=== PATIENT | male | born 1965 | race Caucasian/White ===

== ENCOUNTER 2022-02-23 12:26 | Inpatient (IN) | payer OTHER ==
[2022-02-23 13:04] LABS: #Basophils 0.1 10x3/uL (0.0-0.2); #Eosinphils 0.5 10x3/uL (0.0-0.5); #Monocytes 0.7 10x3/uL (0.0-1.1); #Neutrophils 6.6 10x3/uL (1.5-8.4); %Basophils 0.7 % (0.0-2.0); %Eosinophils 5.3 % (0.0-6.0); %Lymphocytes 10.4 % (18.0-47.0); %Monocytes 8.2 % (0.0-10.0); %Neutrophils 74.8 % (40.0-75.0); Hemoglobin 8.6 g/dL (13.5-17.5); Mean Corpuscular HGB CONC 31.5 g/dL (32.0-36.0); Mean Corpuscular Hemoglobin 30.2 pg (27.0-33.0); Mean Corpuscular Volume 95.8 fl (81.2-95.1); Mean Platelet Volume 10.7 fl (7.4-10.4); Platelet Count 218 10x3/uL (150-450); RBC Distribution Width 13.4 % (11.5-14.5); Red Blood Cell (RBC) Count 2.85 10x6/uL (4.32-5.72); White Blood Cell (WBC) Count 8.8 10x3/uL (3.5-10.5)
[2022-02-23] MEDS ORDERED: Albuterol Sulfate 2.5 mg/3 ml Neb ONE ×2 (13:22→14:14)
[2022-02-23 13:25] LABS: ALT (SGPT) 15 U/L (8-55); AST (SGOT) 16 U/L (5-34); Albumin 3.3 g/dL (3.5-5.0); Alkaline Phosphatase 83 U/L (40-110); Anion Gap 14 mmol/L (10-20); BUN (Urea Nitrogen) 37 mg/dL (8.4-25.7); Bilirubin, Total 0.3 mg/dL (0.2-1.2); Calc. Creatinine Clearance 0 mL/min (70-130); Calcium 7.9 mg/dL (7.8-10.44); Carbon Dioxide 17 mmol/L (22-29); Chloride 118 mmol/L (98-107); Estimated GFR 22; Globulin 2.3 g/dL (2.4-3.5); Glucose 78 mg/dL (70-105); Protein, Total 5.6 g/dL (6.0-8.3); Sodium 142 mmol/L (136-145)
[2022-02-23 13:27] LABS: Potassium 7.2 mmol/L (3.5-5.1)
[2022-02-23] MEDS ORDERED: Furosemide 40 MG/4 ML VIAL ONE (13:59)
[2022-02-23 14:03] LABS: SARS-CoV-2 NAA Rapid Test Not Detected (NotDetected)
[2022-02-23] MEDS ORDERED: Calcium Chloride 1 GM/10 ML Abboject SYRINGE ONE (14:15)
[2022-02-23] MEDS ORDERED: Dextrose 50% Abboject 50 ML SYRINGE ONE ×2 (14:15→14:43)
[2022-02-23] MEDS ORDERED: Sodium Bicarb 50 MEQ/50 ML VIAL ONE ×2 (14:15)
[2022-02-23] MEDS ORDERED: Insulin Regular 300 UNITS/3 ML VIAL ONE (14:16)
[2022-02-23] MEDS ORDERED: Calcium Gluc 4.6 MEQ/10 ML (100 MG/ML) ONE (14:19)
[2022-02-23 15:01] LABS: Actual Bicarbonate (HCO3a) 15.7 mEq/L (22-28); Base Excess (BEa) -10.1 mEq/L (-2.0 to +3.0); CO2 Tension 34.3 mmHg (35.0-45.0); Calcium, Ionized (arterial) 1.19 mmol/L (1.12-1.30); Carboxyhemoglobin (COHb) 0.3 gm% (0.0-3.0); Hemoglobin (Hb) 10.1 g/dL (14.0-18.0); O2 Tension (PaO2), arterial 82.7 mmHg (80.0-100.0); Potassium - ABG Lab 6.4 mmol/L (3.70-5.30); Puncture Site RRA; pH, Arterial 7.28 (7.35-7.45)
[2022-02-23 15:04] LABS: ALV-art Gradient 159.625 mmHg (0-20)
[2022-02-23 17:02] LABS: Anion Gap 13 mmol/L (10-20); BUN (Urea Nitrogen) 37 mg/dL (8.4-25.7); Calc. Creatinine Clearance 0 mL/min (70-130); Calcium 8.9 mg/dL (7.8-10.44); Carbon Dioxide 18 mmol/L (22-29); Chloride 115 mmol/L (98-107); Estimated GFR 21; Glucose 106 mg/dL (70-105); Sodium 140 mmol/L (136-145)
[2022-02-23] MEDS ORDERED: Dextrose 50% Abboject 50 ML SYRINGE SLOW IVP PRN (17:11)
[2022-02-23] MEDS ORDERED: HumaLOG 300 UNITS/3 ML VIAL SC PRN (17:11)
[2022-02-23] MEDS ORDERED: Dextrose 5% in Water 1,000 ML IV PRN (17:11)
[2022-02-23] MEDS ORDERED: Ondansetron PF 4 MG/2 ML Vial IVP PRN (17:11)
[2022-02-23 17:17] VITALS: BMI 39.8
[2022-02-23] MEDS ORDERED: Sodium Chloride 0.9% 1,000 ML IV SCH (17:30)
[2022-02-23] MEDS ORDERED: LOKELMA 10 GM PACKET PO SCH (18:00)
[2022-02-23] MEDS ORDERED: Sodium Bicarb 50 MEQ/50 ML VIAL IVP SCH (18:00)
[2022-02-23] MEDS ORDERED: Calcium Gluc 4.6 MEQ/10 ML (100 MG/ML) SLOW IVP SCH (18:00)
[2022-02-23] MEDS: Sodium Bicarbonate 75 MEQ, Admixture Fee 1 EACH in Dextrose 5% in Water 500 ML IV SCH (18:15)
[2022-02-23 20:29] LABS: Troponin I 0.013 ng/mL (< 0.028)
[2022-02-23 20:36] LABS: Chloride 115 mmol/L (98-107); Potassium 5.9 mmol/L (3.5-5.1); Sodium 144 mmol/L (136-145)
[2022-02-23 20:49] LABS: Anion Gap 18 mmol/L (10-20); BUN (Urea Nitrogen) 37 mg/dL (8.4-25.7); Calc. Creatinine Clearance 43 mL/min (70-130); Calcium 8.7 mg/dL (7.8-10.44); Carbon Dioxide 17 mmol/L (22-29); Estimated GFR 22; Glucose 119 mg/dL (70-105)
[2022-02-23] MEDS: hydrALAZINE 25 MG TAB PO SCH (22:43)
[2022-02-23 22:44] LABS: Troponin I 0.011 ng/mL (< 0.028)
[2022-02-23] MEDS: Atorvastatin Calcium 40 MG TAB PO SCH (22:44)
[2022-02-23] MEDS: Famotidine 20 MG TAB PO SCH (22:44)
[2022-02-23] MEDS: Acetaminophen 325 MG TAB PO PRN (22:46)
[2022-02-23] MEDS: Heparin 5,000 UNITS/ML VIAL SC SCH (22:47)
[2022-02-24] MEDS: Sodium Bicarbonate 75 MEQ, Admixture Fee 1 EACH in Dextrose 5% in Water 500 ML IV SCH ×2 (00:10→06:32)
[2022-02-24 04:20] LABS: Anion Gap 16 mmol/L (10-20); BUN (Urea Nitrogen) 39 mg/dL (8.4-25.7); Calc. Creatinine Clearance 43 mL/min (70-130); Calcium 8.2 mg/dL (7.8-10.44); Carbon Dioxide 17 mmol/L (22-29); Chloride 113 mmol/L (98-107); Estimated GFR 22; Glucose 232 mg/dL (70-105); Potassium 5.7 mmol/L (3.5-5.1); Sodium 140 mmol/L (136-145)
[2022-02-24] MEDS ORDERED: Dextrose 50% Abboject 50 ML SYRINGE SLOW IVP SCH (08:30)
[2022-02-24] MEDS ORDERED: Furosemide 20 MG/2 ML VIAL SLOW IVP SCH (08:30)
[2022-02-24] MEDS ORDERED: Insulin Regular 300 UNITS/3 ML VIAL IVP SCH (08:30)
[2022-02-24] MEDS: Amlodipine 10 MG TAB PO SCH (09:11)
[2022-02-24] MEDS: Aspirin 81 mg Enteric Coated Tablet PO SCH (09:12)
[2022-02-24] MEDS: Clopidogrel Bisulfate 75 MG TAB PO SCH (09:12)
[2022-02-24] MEDS: hydrALAZINE 25 MG TAB PO SCH ×3 (09:12→21:12)
[2022-02-24] MEDS: Carvedilol 25 MG TAB PO SCH ×2 (09:12→17:49)
[2022-02-24] MEDS: Ferrous Sulfate 325 MG TAB PO SCH (09:19)
[2022-02-24] MEDS: Docusate 100 MG CAP PO SCH (09:21)
[2022-02-24] MEDS: Heparin 5,000 UNITS/ML VIAL SC SCH ×3 (11:25→21:11)
[2022-02-24] MEDS: Acetaminophen 325 MG TAB PO PRN ×2 (16:13→21:12)
[2022-02-24] MEDS: Sodium Bicarbonate 75 MEQ in Dextrose 5% in Water 500 ML IV SCH (16:26)
[2022-02-24 17:29] LABS: Anion Gap 13 mmol/L (10-20); BUN (Urea Nitrogen) 41 mg/dL (8.4-25.7); Calc. Creatinine Clearance 44 mL/min (70-130); Calcium 8.1 mg/dL (7.8-10.44); Carbon Dioxide 23 mmol/L (22-29); Chloride 110 mmol/L (98-107); Estimated GFR 22; Glucose 147 mg/dL (70-105); Sodium 141 mmol/L (136-145)
[2022-02-24] MEDS: Famotidine 20 MG TAB PO SCH (21:11)
[2022-02-24] MEDS: Atorvastatin Calcium 40 MG TAB PO SCH (21:11)
[2022-02-25 04:26] LABS: Anion Gap 14 mmol/L (10-20); BUN (Urea Nitrogen) 44 mg/dL (8.4-25.7); Calc. Creatinine Clearance 43 mL/min (70-130); Calcium 7.7 mg/dL (7.8-10.44); Carbon Dioxide 22 mmol/L (22-29); Chloride 113 mmol/L (98-107); Estimated GFR 22; Glucose 124 mg/dL (70-105); Potassium 4.8 mmol/L (3.5-5.1); Sodium 144 mmol/L (136-145)
[2022-02-25] MEDS: hydrALAZINE 25 MG TAB PO SCH (05:36)
[2022-02-25] MEDS: Sodium Bicarbonate 75 MEQ in Dextrose 5% in Water 500 ML IV SCH ×2 (07:59→08:00)
[2022-02-25] MEDS ORDERED: hydrALAZINE 25 MG TAB PO SCH ×3 (09:00→15:00)
[2022-02-25] MEDS: Aspirin 81 mg Enteric Coated Tablet PO SCH (09:39)
[2022-02-25] MEDS: Amlodipine 10 MG TAB PO SCH (09:40)
[2022-02-25] MEDS: Ferrous Sulfate 325 MG TAB PO SCH (09:40)
[2022-02-25] MEDS: Docusate 100 MG CAP PO SCH (09:40)
[2022-02-25] MEDS: Carvedilol 25 MG TAB PO SCH (09:40)
[2022-02-25] MEDS: Clopidogrel Bisulfate 75 MG TAB PO SCH (09:47)
[2022-02-25] MEDS: Heparin 5,000 UNITS/ML VIAL SC SCH (09:50)
[2022-02-25] MEDS ORDERED: hydrALAZINE 20 MG/ML VIAL SLOW IVP SCH (11:15)
[2022-02-25 12:53] VITALS: BP 146/72; TEMP 98.3
== END 2022-02-25 14:50 | DRG 683 ==
LOC: EEVIPCON 12:26 → CSHERS 12:26 → SUATTDRO 12:26 → CSHICU 16:24 → CSHTELE 22:31
PROVIDERS: ADMIT Internal Medicine; ATTEND Internal Medicine
DX: I12.9 Hypertensive chronic kidney disease with stage 1 through stage 4 chronic kidney disease, or unspecified chronic kidney disease (principal); E87.1 Hypo-osmolality and hyponatremia; N18.4 Chronic kidney disease, stage 4 (severe); I25.10 Atherosclerotic heart disease of native coronary artery without angina pectoris; E87.5 Hyperkalemia; E78.5 Hyperlipidemia, unspecified; E11.22 Type 2 diabetes mellitus with diabetic chronic kidney disease; E66.9 Obesity, unspecified; Z20.822 Contact with and (suspected) exposure to COVID-19; D63.1 Anemia in chronic kidney disease; R07.89 Other chest pain; Z95.5 Presence of coronary angioplasty implant and graft; Z95.810 Presence of automatic (implantable) cardiac defibrillator; I25.2 Old myocardial infarction; Z79.82 Long term (current) use of aspirin; Z79.899 Other long term (current) drug therapy; Z79.4 Long term (current) use of insulin; Z95.1 Presence of aortocoronary bypass graft; Z87.891 Personal history of nicotine dependence; Z68.39 Body mass index [BMI] 39.0-39.9, adult
CPT/HCPCS: 36415; 36416; 36600; 71045; 80048; 80053; 82805; 83880; 84484; 85025; 93005; 94640; 96374; 96375; J0360; J0610; J1644; J1815; J1940; J7070; J7611; J7620; J7999; U0002

== ENCOUNTER 2022-03-09 13:05 | Emergency (ER) | payer OTHER ==
[2022-03-09] MEDS ORDERED: Furosemide 40 MG/4 ML VIAL ONE (13:42)
[2022-03-09] MEDS ORDERED: Aspirin 325 MG TAB ONE (13:43)
[2022-03-09 14:29] LABS: SARS-CoV-2 NAA Rapid Test Not Detected (NotDetected)
[2022-03-09 14:57] LABS: #Eosinphils 0.3 10x3/uL (0.0-0.5); #Monocytes 0.6 10x3/uL (0.0-1.1); #Neutrophils 5.7 10x3/uL (1.5-8.4); %Basophils 0.4 % (0.0-2.0); %Eosinophils 4.6 % (0.0-6.0); %Monocytes 7.4 % (0.0-10.0); %Neutrophils 76.1 % (40.0-75.0); Hemoglobin 8.6 g/dL (13.5-17.5); Mean Corpuscular HGB CONC 32.7 g/dL (32.0-36.0); Mean Corpuscular Hemoglobin 30.7 pg (27.0-33.0); Mean Corpuscular Volume 93.9 fl (81.2-95.1); Mean Platelet Volume 10.1 fl (7.4-10.4); Platelet Count 238 10x3/uL (150-450); RBC Distribution Width 13.2 % (11.5-14.5); White Blood Cell (WBC) Count 7.5 10x3/uL (3.5-10.5)
[2022-03-09 15:10] LABS: ALT (SGPT) 13 U/L (8-55); AST (SGOT) 12 U/L (5-34); Albumin 3.1 g/dL (3.5-5.0); Alkaline Phosphatase 84 U/L (40-110); Anion Gap 11 mmol/L (10-20); BUN (Urea Nitrogen) 31 mg/dL (8.4-25.7); Bilirubin, Total 0.3 mg/dL (0.2-1.2); CK (CPK) 185 U/L (30-200); Calc. Creatinine Clearance 0 mL/min (70-130); Calcium 8.7 mg/dL (7.8-10.44); Carbon Dioxide 20 mmol/L (22-29); Chloride 115 mmol/L (98-107); Estimated GFR 25; Globulin 2.6 g/dL (2.4-3.5); Glucose 111 mg/dL (70-105); Potassium 5.7 mmol/L (3.5-5.1); Protein, Total 5.7 g/dL (6.0-8.3); Sodium 140 mmol/L (136-145)
[2022-03-09] MEDS ORDERED: Dextrose 50% Abboject 50 ML SYRINGE ONE (16:08)
[2022-03-09] MEDS ORDERED: Insulin Regular 300 UNITS/3 ML VIAL ONE (16:09)
[2022-03-09] MEDS ORDERED: Albuterol Sulfate 2.5 mg/3 ml Neb ONE ×2 (16:31)
[2022-03-09 20:35] LABS: Anion Gap 14 mmol/L (10-20); BUN (Urea Nitrogen) 33 mg/dL (8.4-25.7); Calc. Creatinine Clearance 0 mL/min (70-130); Calcium 8.8 mg/dL (7.8-10.44); Carbon Dioxide 17 mmol/L (22-29); Chloride 115 mmol/L (98-107); Estimated GFR 26; Glucose 71 mg/dL (70-105); Potassium 5.5 mmol/L (3.5-5.1); Sodium 140 mmol/L (136-145)
== END 2022-03-09 21:07 | disposition short-term general hospital (02) ==
LOC: EEVIPCON 13:05 → CSHERS 13:05
DX: I13.0 Hypertensive heart and chronic kidney disease with heart failure and stage 1 through stage 4 chronic kidney disease, or unspecified chronic kidney disease (principal); N18.9 Chronic kidney disease, unspecified; I50.9 Heart failure, unspecified; E87.5 Hyperkalemia; E78.5 Hyperlipidemia, unspecified; D63.1 Anemia in chronic kidney disease; E11.22 Type 2 diabetes mellitus with diabetic chronic kidney disease; Z79.899 Other long term (current) drug therapy; Z79.82 Long term (current) use of aspirin; Z79.4 Long term (current) use of insulin; Z20.822 Contact with and (suspected) exposure to COVID-19
CPT/HCPCS: 36415; 71045; 80053; 82550; 83605; 83880; 84484; 85025; 93005; 96374; 96375; J1815; J1940; J7611; J7999; U0002

== ENCOUNTER 2022-07-14 16:56 | Emergency (ER) | payer OTHER ==
[2022-07-14 18:00] LABS: #Eosinphils 0.7 10x3/uL (0.0-0.5); #Monocytes 0.9 10x3/uL (0.0-1.1); #Neutrophils 5.5 10x3/uL (1.5-8.4); %Basophils 0.5 % (0.0-2.0); %Lymphocytes 15.2 % (18.0-47.0); %Monocytes 10.5 % (0.0-10.0); %Neutrophils 65.4 % (40.0-75.0); Mean Corpuscular HGB CONC 31.8 g/dL (32.0-36.0); Mean Corpuscular Hemoglobin 30.3 pg (27.0-33.0); Mean Corpuscular Volume 95.2 fl (81.2-95.1); Mean Platelet Volume 10.3 fl (7.4-10.4); Platelet Count 224 10x3/uL (150-450); RBC Distribution Width 15.8 % (11.5-14.5); Red Blood Cell (RBC) Count 2.31 10x6/uL (4.32-5.72); White Blood Cell (WBC) Count 8.4 10x3/uL (3.5-10.5)
[2022-07-14 18:08] LABS: PTT 28.9 sec (22.0-33.0); Prothrombin Time 10.9 sec (9.5-12.1)
[2022-07-14 18:11] LABS: ALT (SGPT) 13 U/L (8-55); AST (SGOT) 16 U/L (5-34); Albumin 2.6 g/dL (3.5-5.0); Alkaline Phosphatase 66 U/L (40-110); Anion Gap 14 mmol/L (10-20); BUN (Urea Nitrogen) 38 mg/dL (8.4-25.7); Bilirubin, Total 0.1 mg/dL (0.2-1.2); Calc. Creatinine Clearance 0 mL/min (70-130); Calcium 7.9 mg/dL (7.8-10.44); Carbon Dioxide 16 mmol/L (22-29); Chloride 119 mmol/L (98-107); Estimated GFR 17; Globulin 2.4 g/dL (2.4-3.5); Glucose 82 mg/dL (70-105); Lipase 17 U/L (8-78); Sodium 142 mmol/L (136-145)
[2022-07-14 18:25] LABS: Potassium 6.6 mmol/L (3.5-5.1)
[2022-07-14] MEDS ORDERED: Calcium Chloride 1 GM/10 ML Abboject SYRINGE ONE ×2 (19:08→19:09)
[2022-07-14] MEDS ORDERED: Dextrose 50% Abboject 50 ML SYRINGE ONE (19:09)
[2022-07-14] MEDS ORDERED: Insulin Regular 300 UNITS/3 ML VIAL ONE (19:10)
[2022-07-14 19:31] LABS: SARS-CoV-2 NAA Rapid Test Not Detected (NotDetected)
== END 2022-07-15 00:50 | disposition short-term general hospital (02) ==
LOC: CSHERS 16:56 → EEVIPCON 16:56 → CSHERS 07-15 00:50
DX: N18.9 Chronic kidney disease, unspecified (principal); D63.1 Anemia in chronic kidney disease; E11.22 Type 2 diabetes mellitus with diabetic chronic kidney disease; I12.9 Hypertensive chronic kidney disease with stage 1 through stage 4 chronic kidney disease, or unspecified chronic kidney disease; N17.9 Acute kidney failure, unspecified; E87.5 Hyperkalemia; I25.10 Atherosclerotic heart disease of native coronary artery without angina pectoris; Z20.822 Contact with and (suspected) exposure to COVID-19; E78.5 Hyperlipidemia, unspecified; E66.9 Obesity, unspecified; Z79.899 Other long term (current) drug therapy; Z79.82 Long term (current) use of aspirin; Z79.4 Long term (current) use of insulin
CPT/HCPCS: 36415; 36430; 71045; 80053; 83690; 84484; 85025; 85610; 85730; 86850; 86900; 86901; 93005; 96374; 96375; J1815; J7999; P9016; U0002